=== PATIENT | male | born 1950 | race Hispanic/Latino ===

== ENCOUNTER → 2019-06-08 | Outpatient (CLI) | payer OTHER ==
[~2019-06-08] VITALS: Ht 168.9 cm; Wt 142.9 kg
[~2019-06-08] MED LIST: SODIUM CHLORIDE 0.9% 500ML 500 ML IV SCH
[2019-06-08 11:29] LABS: BASOPHILS % (AUTO) 0.8 % (0.0-5.0); EOSINOPHILS % (AUTO) 1.2 % (0.0-8.0); LYMPHOCYTES % (AUTO) 14.8 % (21.0-51.0); MEAN CORPUSCULAR HEMOGLOBIN 32.5 pg (27.0-33.0); MEAN CORPUSCULAR HGB CONC 33.4 g/dL (32.0-36.0); MEAN CORPUSCULAR VOLUME 97.3 fL (79-99); MONOCYTES % (AUTO) 9.5 % (3.0-13.0); NEUTROPHILS % (AUTO) 73.7 % (40.0-77.0); PLATELET COUNT (AUTO) 229 K/uL (130-400); RED BLOOD CELL COUNT(AUTO) 4.42 MIL/uL (4.50-6.20); RED CELL DISTRIBUTION WIDTH 13.9 % (11.0-15.5)
[2019-06-08 11:33] LABS: APPEARANCE,URINE Clear (CLEAR); BILIRUBIN,URINE Negative (NEGATIVE); COLOR,URINE Dark Yellow (YELLOW); GLUCOSE, URINE (UA) Negative (NEGATIVE); KETONES,URINE Trace mg/dL (NEGATIVE); LEUKOCYTE ESTERASE ,URINE Negative (NEGATIVE); NITRATE,URINE Negative (NEGATIVE); OCCULT BLOOD,URINE Negative (NEGATIVE); PROTEIN,URINE Negative (NEGATIVE)
[2019-06-08 11:38] LABS: CREATININE 0.9 mg/dL (0.5-1.5)
[2019-06-08 11:41] LABS: INR 1.03 (0.85-1.15); PARTIAL THROMBOPLASTIN TIME 21.8 SEC (26.3-35.5); PROTHROMBIN TIME 10.8 SEC (9.6-11.6)
[2019-06-08 11:51] VITALS: BP 147/68
[2019-06-08 11:57] LABS: BACTERIA,URINE None Seen /HPF (None Seen); MUCUS,URINE Many LPF (None Seen); RBC,URINE 0-1 /HPF (0-1); SQUAMOUS EPITHELIAL CELL,UR 0-2 /HPF (0-2); WBC,URINE 0-1 /HPF (0-1)
--- NOTE | 2019-06-08 12:15 | NUR ---
Notified David Huffman that pt will not have any at home post cath if discharged same day. Okay to proceed.
== END ==
LOC: DAH 10:00 → EDSTATUS 11:00
PROVIDERS: ATTEND Internal Medicine Cardiovascular Disease
DX: Z01.818 Encounter for other preprocedural examination (principal); I50.21 Acute systolic (congestive) heart failure; Z82.49 Family history of ischemic heart disease and other diseases of the circulatory system; Z82.5 Family history of asthma and other chronic lower respiratory diseases
CPT/HCPCS: 36415; 71045; 80048; 81001; 85025; 85610; 85730; 93005